=== PATIENT | male | born 1955 | race Caucasian/White ===

== ENCOUNTER 2025-04-30 09:02 | Outpatient (CLI) | payer MEDICARE, SELFPAY ==
[2025-04-30 17:53] LABS: Basophils # 0.1 K/mm3 (0-0.2); Basophils % 0.7 % (0.1-2.0); Eosinophils # 0.3 Kmm3 (0.0-0.4); Eosinophils % 4.1 % (0.1-12.0); Hematocrit 47.8 % (42.0-52.0); Hemoglobin 15.4 g/dL (14.1-18.0); Immature Granulocytes # 0.01 10^3uL; Immature Granulocytes % 0.1 %; Mean Corpuscular HGB Conc 32.2 g/dL (31.8-35.4); Mean Corpuscular Hemoglobin 30.5 pg (27.0-31.2); Mean Corpuscular Volume 94.7 fl (80-94); Monocytes # 0.5 K/mm3 (0.1-1.0); Monocytes % 6.4 % (1.7-9.3); Neutrophils # 5.4 K/mm3 (1.8-7.8); Neutrophils % 64.7 % (37.0-80.0); Nucleated Red Blood Cells # 0 10^3/uL; Nucleated Red Blood Cells % 0 %; Platelet Count 214 K/mm3 (142-424); Red Blood Count 5.05 M/mm3 (4.60-6.20); Red Cell Distribution Width 12.9 % (11.5-17.5); Red Cell Distribution Width-SD 44.5 fL; White Blood Count 8.3 K/mm3 (4.8-10.8)
[2025-04-30 18:26] LABS: Alanine Aminotransferase 18 U/L (12-78); Albumin Level 3.9 g/dl (3.5-5.0); Albumin/Globulin Ratio 1.6 (1.1-1.8); Alkaline Phosphatase 78 U/L (38-126); Anion Gap 11.1 mEq/L (5-15); Aspartate Amino Transferase 21 U/L (17-59); Bilirubin,Total 0.4 mg/dl (0.2-1.3); Blood Urea Nitrogen 16 mg/dl (9-20); Calcium 8.5 mg/dl (8.4-10.2); Carbon Dioxide 26 mmol/L (22.0-30.0); Chloride 104 mmol/L (98-107); Chol/HDL Ratio 4.8 (1-3.5); Cholesterol 115 mg/dl (140-200); Estimated Glomerular Filt Rate 133 ml/min (>60); GFR (African American) 161 ML/MIN (>60); Globulin 2.5 g/dL (1.3-3.2); Glucose 128 mg/dl (74-100); HDL Cholesterol 24 mg/dl (40-60); Potassium 4.1 mmoL/L (3.5-5.1); Sodium 137 mmol/L (136-145); Total Protein,Serum 6.4 g/dl (6.3-8.2); Triglycerides 159 mg/dl (30-150); VLDL Cholesterol 32 mg/dL (0-40)
[2025-04-30 18:39] LABS: Direct LDL Cholesterol 63.13 mg/dL (100-129)
[2025-04-30 18:59] LABS: Prostate Specific Ag Screen 1.1 ng/ml (0.0-4.0); Thyroid Stimulating Hormone 2.42 uIU/mL (0.465-4.68)
[2025-04-30 19:33] LABS: HIV Combo NEGATIVE (Negative)
[2025-04-30 19:42] LABS: Hepatitis C Ab Qual. W/ RFX NEGATIVE (Negative)
[2025-05-02 09:24] LABS: Hepatitis B Surface Antigen Negative (Negative)
--- OUTSIDE RECORDS SUMMARY | 2025-05-03 09:06 | XMS_ITS | Clinical Summary ---
Author Organization [facility] Address [address] [place] [address] Phone Care Team Providers Care Inletter Name Role Phone Unavailable Primary Care Provider Unavailabl e Allergies No known active allergies Medications metFORMIN (GLUCOPHAGE) 1,000 mg Take 1,000 mg by mouth 2 times daily. Active meclizine (ANTIVERT) 25 mg tablet Take by mouth as needed. Active insulin glargine (LANTUS) 100 unit/mL injectionIndica tions:diabetes mellitus Subcutaneous (Inject under the skin) 35 Units nightly. Indications: DIABETES MELLITUS Active atorvastatin (LIPITOR) 10 mg tablet Take 1 Tab by mouth nightly. 30 Tab 0 3 Active Aspirin 325 mg tablet Take 1 Tab by mouth daily (with breakfast). 30 Tab 0 3 Active clopidogrel (PLAVIX) 75 mg tablet Take 1 Tab by mouth daily. 30 Tab 0 3 Active Active Problems Problem Noted Date Diagnosed Date Syncope 08/05/2013 Diabetes mellitus 08/05/2013 Medical History Medical History Date Comments Diabetes mellitus (HCC) COPD (chronic obstructive pulmonary disease) (HC C) Heartburn Arthritis everywhere Family History Medical History Relation Name Comments Diabetes Mother High Blood Pressure Mother Kidney Disease Mother Learning Disabilities Mother Relation Name Status Comments Mother Social History Tobacco Use Types Packs/Day Years Used Date Smoking Tobacco: Every Day Cigarettes 1.5 46 Tobacco Cessation:Ready to Q uit: No; Counseling Given: Yes Alcohol Use Standard Drinks/Week Comments No 0 (1 standard drink = 0.6 oz pur e alcohol) Sex and Gender Information Value Date Recorded Sex Assigned at Not on file Legal Sex Male 9:02 AM EDT Gender Identity Not on file Sexual Orientation Not on file Obstetrics History Last Filed Vital Signs Vital Sign Reading Time Taken Comments Blood Pressure 122/68 08/07/2013 2:53 PM EDT Pulse 83 08/07/2013 2:53 PM EDT Temperature 36.3 C (97.4 F) 08/07/2013 11:00 AM EDT Respiratory Rate 18 08/07/2013 11:0 0 AM EDT Oxygen Saturation 96% 08/07/2013 2:53 PM EDT Inhaled Oxygen Concentration - - Weight 100.6 kg (221 lb 12.5 oz) 08/04/2013 6:49 PM EDT Height 175.3 cm (5' 9 ) 08/04/2013 6:49 PM EDT Body Mass Index 32.75 08/04/2013 6:49 PM EDT Plan of Treatment Health Maintenance Due Date Last Done Comments Wellness Exam Medicare 1956 Microalbuminuria 1963 Diabetic Eye Exam 1971 Hepatitis C Screening 1971 DTaP/TDaP/Td (1 - Tdap) 1972 Pneumococcal Vaccine 50+ (1 of 2 - PCV) 1972 Cologuard 1998 Colon Cancer Screening 1998 Colonoscopy 1998 FIT 1998 Sigmoidoscopy 1998 Virtual Colonography 1998 Low Dose Lung Cancer Screening 2003 Zoster (1 of 2) 2003 RSV or 60+ (1 - Ris k 60-74 years 1-dose series) 2013 Hemoglobin A1c 02/04/2014 08/07/2013, 08/06/2013, 08/05/2013 Lipids 07/24/2014 07/24/2013 COVID-19 Vaccine (1 - 2023-2 5 season) 2024 Influenza Vaccine (Season Ended) 2025 Hepatitis B Vaccine Aged Out No longe r eligible based on patient's age to complete this topic Meningococcal B Vaccine Aged Out No l onger eligible based on patient's age to complete this topic Procedures Procedure Name Priority Date/Time Associated Diagnosis Comments HEMOGLOBIN A1C Early AM 08/07/2013 5:30 AM EDT LIPID SCREEN ROCKY 07/24/2013 6:00 AM EDT from Last 3 Months or Most Recently Relevant to Health Maintenance Results * (ABNORMAL) HEMOGLOBIN A1C (08/07/2013 5:30 AM EDT) Hgb A1c 8.5(H) <=7.0 % [facility] Comment: Initial Diagnostic Criteria < 5.7 % Normal 5.7 - 6.4 % At risk for diabetes mellitus >= 6.5 % Consistent with diabetes mellitus Diabetes monitoring Target Value (ADA recommended): < 7 % Blood specimen (specimen) UPPER LIMB STRUCTURE / Unknown 08/07/2013 5:30 AM EDT 08/07/2013 5:53 AM EDT Tiffany Bustamante MD CHEMISTRY ORDERABLES Final Resul t Performing Organization Address [facility] de Phone Number [facility] [address] [place] [address] * (ABNORMAL) LIPID SCREEN (07/24/2013 6:00 AM EDT) Cholesterol 146 <=200 mg/dL [facility] Comment: < 200 Desirable 200 - 239 Borderline High >= 240 High Triglyceride 207(H) <=150 mg/dL [facility] Comment: < 150 Normal 150 - 199 Borderline High 200 - 499 High >= 500 Very High HDL 24(L) >=40 mg/dL [facility] Comment: > 60 Optimal 40 - 60 Acceptable < 40 Low LDL Calculated 81 <=100 mg/dL [facility] Comment: < 100 Optimal 100 - 129 Near or above optimal 130 - 159 Borderline High 160 - 189 High >= 190 Very High Blood specimen (specimen) UPPER LIMB STRUCTURE / Unknown 07/24/2013 6:00 AM EDT 07/24/2013 1:29 PM EDT Thien Jo MD CHEMISTRY ORDERABLES Edited Result - Final Performing Organization Address [facility] de Phone Number [facility] [address] [place] [address] from Last 3 Months or Most Recently Relevant to Health Maintenance Insurance [place] [address] [place] [address] [id number]
--- OUTSIDE RECORDS SUMMARY | 2025-05-03 09:07 | XMS_ITS | Data Portability ---
Author Organization [facility] Address [address] [place] [address] Assessment Encounter Date Assessment Date Assessment LastModified by Organization Details LastModified Time 03/30/2024 03/30/2024 Repeat A1c today remains above goal, is stable at 11 today, remains poorly controlled. Continue meds as prescribed for type 2 diabetes. reinforced importance of compliance with medications and ADA diet guidelines. reinforced target organ damage associated with uncontrolled type 2 diabetes. recommend BID blood glucose testing while keeping a log. Pt continuing to smoke and is aware of risks associated with use. Pt advised on smoking cessation and options available in assisting. Pt will reach out to me when ready to quit. F/u 3 months, sooner as needed. [email or web address] Not available 05/06/2024 11:35:13 Plan of Treatment Reminders Order Date Submit Date Provider Last Modified By Organization Details Last Modified Time Details Appointments None recorded. Lab HbA1c (hemoglobin A1c), blood 2024 025 [facility], [address] [place], [address], 5 14:21:34 lipid panel, serum 2023 024 [facility], [address], Esteban [address], [place], [address], 4 07:36:51 CBC w/ auto diff 2023 024 [facility], [address], [place] [address], [place], [address], 4 07:36:50 TSH + free T4, serum 2023 024 [facility], [address], [place] [address], [place], [address], 4 07:36:49 HbA1c (hemoglobin A1c), blood 2023 024 [facility], [address], [place] [address], [place], [address], 4 07:36:53 cobalamin and folate panel, serum 2023 024 [facility], [address], [place]eb[place] F, [place], [address], 4 07:36:52 CMP, serum or plasma 2023 024 [facility], [address], [place] [address], [place], [address], 4 07:36:51 HbA1c (hemoglobin A1c), blood 2023 024 [facility], [address], [place] [address], [place], [address], 4 07:39:08 CMP, serum or plasma 2023 024 [facility], [address], [place] F, [place], [address], 4 07:39:05 lipid panel, serum 2023 024 [facility], [address], [place]eb[place] F, [place], [address], 4 07:39:06 CBC w/ auto diff 2023 024 [facility], [address], [place] F, [place], [address], 4 07:39:04 vitamin B12 + folate, serum or blood 2023 024 [facility], [address], [place] F, [place], [address], 4 07:39:07 TSH + free T4, serum 2023 024 [facility], [address], [place] F, [place], [address], 4 07:39:03 vitamin D, 25-hydroxy, total, serum 2023 024 [facility], [address], [place] F, [place], [address], 4 07:39:09 glucose, fingerstick , blood 2023 024 [email or web address] [facility], [address] [place] [address] Rd[address] [place], [address], 4 17:13:48 HbA1c (hemoglobin A1c), blood [address], [address] [place] [address] Rd., [place], [address], 4 17:13:42 Referral None recorded. Procedures None recorded. Surgeries None recorded. Imaging None recorded. Medication Orders Blood Glucose Test strips 2023 024 [facility], [address] [place] [address] Road, [place], [address], 4 11:12:35 Anoro Ellipta 62.5 mcg-25 mcg/actuati on powder for inhalation 2023 024 [facility], [address] [place] [address] , [place], [address], 4 09:34:49 albuterol sulfate HFA 90 mcg/actuati on aerosol inhaler 2023 024 [facility] [facility], [address], [place], [address], 4 11:36:37 atorvastati n 10 mg tablet 2023 024 [facility] [place] [facility], [address], [place], [address], 4 11:36:38 clopidogrel 75 mg tablet 2023 024 [facility] [place] [facility], [address], [place], [address], 4 11:36:38 Januvia 100 mg tablet 2023 024 [facility] [place] [facility], [address] [place], [address], 4 17:13:45 Jardiance 25 mg tablet 2023 024 [facility] [facility], [address], [place], [address], 4 17:13:44 metformin 1,000 mg tablet 2023 024 [facility] [facility], [address] [place], [address], 4 17:13:44 Toujeo Max U-300 SoloStar 300 unit/mL (3 mL) subcutaneou s insulin pen 2023 024 [email or web address] 41 [facility], [address] [place], [address], 4 11:32:49 Humalog Mix 75-25 KwikPen U-100 insulin 100 unit/mL subcutaneou s pen 2023 024 [facility] [place] [facility], [address], [place], [address], 14:19:12 omeprazole 40 mg capsule,del ayed release 2023 024 [facility] [facility], [address], [place], [address], 11:36:39 losartan 100 mg tablet 2023 024 [facility] [facility], [address], [place], [address], 11:36:40 Patient TargetsNo targets recorded. Patient Instructions Encounter Date Encounter Id Patient Instructions Last Modified By Organization Details Last Modified Time 03/30/2024 [id number] advance directives: care instructions [email or web address] Not available 03/30/2024 17:13:42 smoking cessatio n counseling, greater than 3 minutes up to 10 minutes* [email or web address] Not available 05/06/2024 11:36:49 preventing falls : care instructions [email or web address] Not available 03/30/2024 17:13:42 05/11/2024 [id number] smoking cessatio n counseling, greater than 3 minutes up to 10 minutes* Not available 05/11/2024 10:44:31 body mass index: care instructions Not available 05/11/2024 11:25:38 learning about healthy weight Not available 05/11/2024 11:25:38 colon cancer screening: care instructions Not available 05/11/2024 11:25:38 Advised to take medication as directed Discussed continuous churn buttermaker effects of smoking To call office for questions, concerns or issues Not available 05/11/2024 13:24:28 07/13/2024 [id number] smoking cessatio n counseling, greater than 3 minutes up to 10 minutes* Not available 07/13/2024 09:05:48 body mass index: care instructions Not available 07/13/2024 14:00:04 learning about healthy weight Not available 07/13/2024 14:00:04 Advised to take medication as directed Will call with results of labs once available Encouraged to follow heart healthy lifestyle - low fat diet and aim for 30 minutes per day of physical exercise. To call office for questions, concerns or issues Not available 07/13/2024 18:08:35 11/16/2024 [id number] smoking cessatio n counseling, greater than 3 minutes up to 10 minutes* Not available 11/16/2024 10:43:15 body mass index: care instructions Not available 11/16/2024 12:06:04 learning about healthy weight Not available 11/16/2024 12:06:04 Advised to take medication as directed Will call with results of labs once available Encouraged to follow heart healthy lifestyle - low fat diet and aim for 30 minutes per day of physical exercise. To call office for questions, concerns or issues Not available 11/16/2024 13:07:25 02/23/2025 [id number] Reviewed results of in office testing today Advised to take medication as directed Encouraged to follow heart healthy lifestyle - low fat and aim for 30 minutes of physical activity per day To call office for questions, concerns or issues Not available 02/23/2025 15:11:02 Reason for Referral None Reported. Results Created Date Observation Date Name Description Value Unit Range Abnormal Flag Note LastModifiedBy Organization Detail LastModifiedTime 03/30/20 24 03/30/2024 HbA1c (hemo globi n A1c), blood HbA1C 11 % Not Available [facility] [address] [place], [address], 03/30/2024 17:10:58 03/30/20 24 03/30/2024 gluco se, finge rstic k, blood Blood Glucose: mg/dl 210 Not Available [facility] [address] [place], [address], 03/30/2024 17:10:58 07/13/20 24 07/14/2024 TSH+F REE T4 TSH 2.670 uIU/m L 0.450- 4.500 normal Not Available [facility] ([facility]) [address] [place], [address], 07/14/2024 07:39:03 07/13/20 24 07/14/2024 TSH+F REE T4 T4,free(dire ct) 1.27 NG/dL 0.82-1 .77 normal Not Available [facility] ([facility]) [address] [place], [address], 07/14/2024 07:39:03 07/13/20 24 07/14/2024 CBC WITH DIFFE RENTI AL/PL ATELE T WBC 6.0 x10e3 /uL 3.4-10 .8 normal Not Available [facility] ([facility]) [address] [place], [address], 07/14/2024 07:39:04 07/13/20 24 07/14/2024 CBC WITH DIFFE RENTI AL/PL ATELE T RBC 5.45 x10e6 /uL 4.14-5 .80 normal Not Available [facility] ([facility]) [address] [place], [address], 07/14/2024 07:39:04 07/13/20 24 07/14/2024 CBC WITH DIFFE RENTI AL/PL ATELE T hemoglobin 17.4 g/dL 13.0-1 7.7 normal Not Available [facility] ([facility]) [address] [place], [address], 07/14/2024 07:39:04 07/13/20 24 07/14/2024 CBC WITH DIFFE RENTI AL/PL ATELE T hematocrit 51.6 % 37.5-5 1.0 above high normal Not Available [facility] ([facility]) [address] [place], [address], 07/14/2024 07:39:04 07/13/20 24 07/14/2024 CBC WITH DIFFE RENTI AL/PL ATELE T MCV 95 fL 79-97 normal Not Available [facility] ([facility]) [address] [facility], [place], [address], 07/14/2024 07:39:04 07/13/20 24 07/14/2024 CBC WITH DIFFE RENTI AL/PL ATELE T MCH 31.9 pg 26.6-3 3.0 normal Not Available [facility] ([facility]) [address] [facility], [place], [address], 07/14/2024 07:39:04 07/13/20 24 07/14/2024 CBC WITH DIFFE RENTI AL/PL ATELE T MCHC 33.7 g/dL 31.5-3 5.7 normal Not Available [facility] ([facility]) [address] [place], [address], 07/14/2024 07:39:04 07/13/20 24 07/14/2024 CBC WITH DIFFE RENTI AL/PL ATELE T RDW 12.2 % 11.6-1 5.4 Not Available [facility] ([facility]) [address] [place], [address], 07/14/2024 07:39:04 07/13/20 24 07/14/2024 CBC WITH DIFFE RENTI AL/PL ATELE T platelets 214 x10e3 /uL 150-45 0 normal Not Available [facility] ([facility]) [address] [place], [address], 07/14/2024 07:39:04 07/13/20 24 07/14/2024 CBC WITH DIFFE RENTI AL/PL ATELE T neutrophils 65 % not estab. normal Not Available [facility] ([facility]) [address] [facility], [place], [address], 07/14/2024 07:39:04 07/13/20 24 07/14/2024 CBC WITH DIFFE RENTI AL/PL ATELE T lymphs 25 % not estab. normal Not Available [facility] ([facility]) [address] [place], [address], 07/14/2024 07:39:04 07/13/20 24 07/14/2024 CBC WITH DIFFE RENTI AL/PL ATELE T monocytes 6 % not estab. normal Not Available [facility] ([facility]) [address] [facility], [place], [address], 07/14/2024 07:39:04 07/13/20 24 07/14/2024 CBC WITH DIFFE RENTI AL/PL ATELE T eos 3 % not estab. normal Not Available [facility] ([facility]) [address] [facility], [place], [address], 07/14/2024 07:39:04 07/13/20 24 07/14/2024 CBC WITH DIFFE RENTI AL/PL ATELE T basos 1 % not estab. normal Not Available [facility] ([facility]) [address] [place], [address], 07/14/2024 07:39:04 07/13/20 24 07/14/2024 CBC WITH DIFFE RENTI AL/PL ATELE T immature cells JAVA SOFTWARE ENGINEER Not Available [facility] ([facility]) [address] [place], [address], 07/14/2024 07:39:04 07/13/20 24 07/14/2024 CBC WITH DIFFE RENTI AL/PL ATELE T neutrophils (absolute) 3.9 x10e3 /uL 1.4-7. 0 normal Not Available [facility] ([facility]) [address] [place], [address], 07/14/2024 07:39:04 07/13/20 24 07/14/2024 CBC WITH DIFFE RENTI AL/PL ATELE T lymphs (absolute) 1.5 x10e3 /uL 0.7-3. 1 normal Not Available [facility] ([facility]) [address] [facility], [place], [address], 07/14/2024 07:39:04 07/13/20 24 07/14/2024 CBC WITH DIFFE RENTI AL/PL ATELE T monocytes(ab solute) 0.4 x10e3 /uL 0.1-0. 9 normal Not Available [facility] ([facility]) [address] [facility], [place], [address], 07/14/2024 07:39:04 07/13/20 24 07/14/2024 CBC WITH DIFFE RENTI AL/PL ATELE T eos (absolute) 0.2 x10e3 /uL 0.0-0. 4 normal Not Available [facility] ([facility]) [address] [facility], [place], [address], 07/14/2024 07:39:04 07/13/20 24 07/14/2024 CBC WITH DIFFE RENTI AL/PL ATELE T baso (absolute) 0.1 x10e3 /uL 0.0-0. 2 normal Not Available [facility] ([facility]) [address] [facility], [place], [address], 07/14/2024 07:39:04 07/13/20 24 07/14/2024 CBC WITH DIFFE RENTI AL/PL ATELE T immature granulocytes 0 % not estab. Not Available [facility] ([facility]) [address] [facility], [place], [address], 07/14/2024 07:39:04 07/13/20 24 07/14/2024 CBC WITH DIFFE RENTI AL/PL ATELE T immature grans (abs) 0.0 x10e3 /uL 0.0-0. 1 Not Available [facility] ([facility]) [address] [facility], [place], [address], 07/14/2024 07:39:04 07/13/20 24 07/14/2024 CBC WITH DIFFE RENTI AL/PL ATELE T NRBC JAVA SOFTWARE ENGINEER Not Available [facility] ([facility]) [address] [facility], [place], [address], 07/14/2024 07:39:04 07/13/20 24 07/14/2024 CBC WITH DIFFE RENTI AL/PL ATELE T hematology comments: JAVA SOFTWARE ENGINEER Not Available [facility]) [address] [facility], [place], [address], 07/14/2024 07:39:04 07/13/20 24 07/14/2024 COMP. METAB OLIC PANEL (14) glucose 227 mg/dL 70-99 above high normal Not Available [facility] ([facility]) [address] [facility], [place], [address], 07/14/2024 07:39:05 07/13/20 24 07/14/2024 COMP. METAB OLIC PANEL (14) BUN 16 mg/dL 8-27 normal Not Available [facility] ([facility]) [address] [facility], [place], [address], 07/14/2024 07:39:05 07/13/20 24 07/14/2024 COMP. METAB OLIC PANEL (14) creatinine 0.84 mg/dL 0.76-1 .27 normal Not Available [facility] ([facility]) [address] [facility], [place], [address], 07/14/2024 07:39:05 07/13/20 24 07/14/2024 COMP. METAB OLIC PANEL (14) eGFR 94 mL/mi n/1.7 3 >59 normal Not Available [facility] ([facility]) [address] [place], [address], 07/14/2024 07:39:05 07/13/20 24 07/14/2024 COMP. METAB OLIC PANEL (14) BUN/creatini ne ratio 19 10-24 normal Not Available [facility]) [address] [place], [address], 07/14/2024 07:39:05 07/13/20 24 07/14/2024 COMP. METAB OLIC PANEL (14) sodium 139 mmol/ L 134-14 4 normal Not Available [facility] ([facility]) [address] [place], [address], 07/14/2024 07:39:05 07/13/20 24 07/14/2024 COMP. METAB OLIC PANEL (14) potassium 4.3 mmol/ L 3.5-5. 2 normal Not Available [facility] ([facility]) [address] [place], [address], 07/14/2024 07:39:05 07/13/20 24 07/14/2024 COMP. METAB OLIC PANEL (14) chloride 100 mmol/ L 96-106 normal Not Available [facility] ([facility]) [address] [place], [address], 07/14/2024 07:39:05 07/13/20 24 07/14/2024 COMP. METAB OLIC PANEL (14) carbon dioxide, total 23 mmol/ L 20-29 normal Not Available [facility] ([facility]) [address] [place], [address], 07/14/2024 07:39:05 07/13/20 24 07/14/2024 COMP. METAB OLIC PANEL (14) calcium 8.9 mg/dL 8.6-10 .2 normal Not Available [facility] ([facility]) [address] [place], [address], 07/14/2024 07:39:05 07/13/20 24 07/14/2024 COMP. METAB OLIC PANEL (14) protein, total 6.6 g/dL 6.0-8. 5 normal Not Available [facility] ([facility]) [address] [place], [address], 07/14/2024 07:39:05 07/13/20 24 07/14/2024 COMP. METAB OLIC PANEL (14) albumin 4.2 g/dL 3.9-4. 9 normal Not Available [facility] ([facility]) [address] [place], [address], 07/14/2024 07:39:05 07/13/20 24 07/14/2024 COMP. METAB OLIC PANEL (14) globulin, total 2.4 g/dL 1.5-4. 5 Not Available [facility] ([facility]) [address] [place], [address], 07/14/2024 07:39:05 07/13/20 24 07/14/2024 COMP. METAB OLIC PANEL (14) bilirubin, total 0.2 mg/dL 0.0-1. 2 normal Not Available [facility] ([facility]) [address] [place], [address], 07/14/2024 07:39:05 07/13/20 24 07/14/2024 COMP. METAB OLIC PANEL (14) alkaline phosphatase 86 IU/L 44-121 normal Not Available [facility] [address] [place], [address], 07/14/2024 07:39:05 07/13/20 24 07/14/2024 COMP. METAB OLIC PANEL (14) AST (SGOT) 14 IU/L 0-40 normal Not Available [facility] ([facility]) [address] [place], [address], 07/14/2024 07:39:05 07/13/20 24 07/14/2024 COMP. METAB OLIC PANEL (14) ALT (SGPT) 13 IU/L 0-44 normal Not Available [facility] ([facility]) [address] [place], [address], 07/14/2024 07:39:05 07/13/20 24 07/14/2024 LIPID PANEL cholesterol, total 132 mg/dL 100-19 9 normal Not Available [facility] ([facility]) [address] [place], [address], 07/14/2024 07:39:06 07/13/20 24 07/14/2024 LIPID PANEL triglyceride s 235 mg/dL 0-149 above high normal Not Available [facility] ([facility]) [address] [place], [address], 07/14/2024 07:39:06 07/13/20 24 07/14/2024 LIPID PANEL HDL cholesterol 26 mg/dL >39 below low normal Not Available [facility] ([facility]) [address] [place], [address], 07/14/2024 07:39:06 07/13/20 24 07/14/2024 LIPID PANEL VLDL cholesterol patricia 39 mg/dL 5-40 Not Available [facility]) [address] [place], [address], 07/14/2024 07:39:06 07/13/20 24 07/14/2024 LIPID PANEL LDL chol calc ([facility]) 67 mg/dL 0-99 Not Available [facility]) [address] [place], [address], 07/14/2024 07:39:06 07/13/20 24 07/14/2024 LIPID PANEL LDL calc comment: JAVA SOFTWARE ENGINEER Not Available [facility]) [address] [place], [address], 07/14/2024 07:39:06 07/13/20 24 07/14/2024 VITAM IN B12 AND FOLAT E vitamin B12 779 pg/mL 232-12 45 normal Not Available [facility] ([facility]) [address] [place], [address], 07/14/2024 07:39:07 07/13/20 24 07/14/2024 VITAM IN B12 AND FOLAT E folate (folic acid), serum 14.9 NG/mL >3.0 normal A serum folat e dominique ntrat ion of less than 3.1 ng/mL is consi dered to repre sent clini patricia defic iency . Not Available [facility] ([facility]) [address] [facility], [place], [address], 07/14/2024 07:39:07 07/13/20 24 07/14/2024 HEMOG LOBIN A1C hemoglobin A1C 10.1 % 4.8-5. 6 above high normal Predi abete s: 5.7 - 6.4 Diabe duke: >6.4 Glyce te contr ol for adult s with diabe duke: <7.0 Not Available [facility] ([facility]) [address] [facility], [place], [address], 07/14/2024 07:39:08 07/13/20 24 07/14/2024 VITAM IN D, 25-HY DROXY vitamin D, 25-hydroxy 25.9 NG/mL 30.0-1 00.0 below low normal Vitam in D defic iency has been defin ed by the Insti tute of Medic ine and an Endoc rine Socie ty pract ice guide line as a level of serum 25-OH vitam in D less than 20 ng/mL (1,2) . The Endoc rine Socie ty went on to furth er defin e vitam in D insuf ficie ncy as a level betwe en 21 and 29 ng/mL (2). 1. IOM (Inst itute of Medic ine). 2010. Dieta ry refer ence mack es for calci um and D. Lucila peraza [place]: The Natio nal [facility] Press . 2. Jacquelyn larsen MF, Immanuel reid [place], Malgorzata off-F errolga i MIN, et al. Evalu ation , treat ment, and preve ntion of vitam in D defic iency : an Endoc rine Socie ty clini patricia pract ice guide line. JCEM. 2010; 96(7) :1911 -30. Not Available [facility] ([facility]) [address] [facility], [place], [address], 07/14/2024 07:39:09 11/16/20 24 11/17/2024 TSH+F REE T4 TSH 3.000 uIU/m L 0.450- 4.500 normal Not Available [facility] ([facility]) [address] [facility], [place], [address], 11/17/2024 07:36:49 11/16/20 24 11/17/2024 TSH+F REE T4 T4,free(dire ct) 1.49 NG/dL 0.82-1 .77 normal Not Available [facility] ([facility]) [address] [facility], [place], [address], 11/17/2024 07:36:49 11/16/20 24 11/17/2024 CBC WITH DIFFE RENTI AL/PL ATELE T WBC 7.1 x10e3 /uL 3.4-10 .8 normal Not Available [facility] ([facility]) [address] [place], [address], 11/17/2024 07:36:50 11/16/20 24 11/17/2024 CBC WITH DIFFE RENTI AL/PL ATELE T RBC 5.20 x10e6 /uL 4.14-5 .80 normal Not Available [facility] ([facility]) [address] [place], [address], 11/17/2024 07:36:50 11/16/20 24 11/17/2024 CBC WITH DIFFE RENTI AL/PL ATELE T hemoglobin 16.7 g/dL 13.0-1 7.7 normal Not Available [facility] ([facility]) [address] [place], [address], 11/17/2024 07:36:50 11/16/20 24 11/17/2024 CBC WITH DIFFE RENTI AL/PL ATELE T hematocrit 48.8 % 37.5-5 1.0 normal Not Available [facility] ([facility]) [address] [place], [address], 11/17/2024 07:36:50 11/16/20 24 11/17/2024 CBC WITH DIFFE RENTI AL/PL ATELE T MCV 94 fL 79-97 normal Not Available [facility] ([facility]) [address] [place], [address], 11/17/2024 07:36:50 11/16/20 24 11/17/2024 CBC WITH DIFFE RENTI AL/PL ATELE T MCH 32.1 pg 26.6-3 3.0 normal Not Available [facility] ([facility]) [address] [place], [address], 11/17/2024 07:36:50 11/16/20 24 11/17/2024 CBC WITH DIFFE RENTI AL/PL ATELE T MCHC 34.2 g/dL 31.5-3 5.7 normal Not Available [facility] ([facility]) [address] [place], [address], 11/17/2024 07:36:50 11/16/20 24 11/17/2024 CBC WITH DIFFE RENTI AL/PL ATELE T RDW 12.3 % 11.6-1 5.4 Not Available [facility] ([facility]) [address] [place], [address], 11/17/2024 07:36:50 11/16/20 24 11/17/2024 CBC WITH DIFFE RENTI AL/PL ATELE T platelets 216 x10e3 /uL 150-45 0 normal Not Available [facility] ([facility]) [address] [place], [address], 11/17/2024 07:36:50 11/16/20 24 11/17/2024 CBC WITH DIFFE RENTI AL/PL ATELE T neutrophils 68 % not estab. normal Not Available [facility] ([facility]) [address] [facility], [place], [address], 11/17/2024 07:36:50 11/16/20 24 11/17/2024 CBC WITH DIFFE RENTI AL/PL ATELE T lymphs 21 % not estab. normal Not Available [facility] ([facility]) [address] [facility], [place], [address], 11/17/2024 07:36:50 11/16/20 24 11/17/2024 CBC WITH DIFFE RENTI AL/PL ATELE T monocytes 7 % not estab. normal Not Available [facility] ([facility]) [address] [facility], [place], [address], 11/17/2024 07:36:50 11/16/20 24 11/17/2024 CBC WITH DIFFE RENTI AL/PL ATELE T eos 3 % not estab. normal Not Available [facility] ([facility]) [address] [facility], [place], [address], 11/17/2024 07:36:50 11/16/20 24 11/17/2024 CBC WITH DIFFE RENTI AL/PL ATELE T basos 1 % not estab. normal Not Available [facility] ([facility]) [address] [place], [address], 11/17/2024 07:36:50 11/16/20 24 11/17/2024 CBC WITH DIFFE RENTI AL/PL ATELE T immature cells JAVA SOFTWARE ENGINEER Not Available [facility]) [address] [place], [address], 11/17/2024 07:36:50 11/16/20 24 11/17/2024 CBC WITH DIFFE RENTI AL/PL ATELE T neutrophils (absolute) 4.9 x10e3 /uL 1.4-7. 0 normal Not Available [facility] ([facility]) [address] [place], [address], 11/17/2024 07:36:50 11/16/20 24 11/17/2024 CBC WITH DIFFE RENTI AL/PL ATELE T lymphs (absolute) 1.5 x10e3 /uL 0.7-3. 1 normal Not Available [facility] ([facility]) [address] [facility], [place], [address], 11/17/2024 07:36:50 11/16/20 24 11/17/2024 CBC WITH DIFFE RENTI AL/PL ATELE T monocytes(ab solute) 0.5 x10e3 /uL 0.1-0. 9 normal Not Available [facility] ([facility]) [address] [facility], [place], [address], 11/17/2024 07:36:50 11/16/20 24 11/17/2024 CBC WITH DIFFE RENTI AL/PL ATELE T eos (absolute) 0.2 x10e3 /uL 0.0-0. 4 normal Not Available [facility] ([facility]) [address] [facility], [place], [address], 11/17/2024 07:36:50 11/16/20 24 11/17/2024 CBC WITH DIFFE RENTI AL/PL ATELE T baso (absolute) 0.1 x10e3 /uL 0.0-0. 2 normal Not Available [facility] ([facility]) [address], [place], [address], 11/17/2024 07:36:50 11/16/20 24 11/17/2024 CBC WITH DIFFE RENTI AL/PL ATELE T immature granulocytes 0 % not estab. Not Available [facility] ([facility]) [address], [place], [address], 11/17/2024 07:36:50 11/16/20 24 11/17/2024 CBC WITH DIFFE RENTI AL/PL ATELE T immature grans (abs) 0.0 x10e3 /uL 0.0-0. 1 Not Available [facility] ([facility]) [address] [place], [address], 11/17/2024 07:36:50 11/16/20 24 11/17/2024 CBC WITH DIFFE RENTI AL/PL ATELE T NRBC JAVA SOFTWARE ENGINEER Not Available [facility] ([facility]) [address], [place], [address], 11/17/2024 07:36:50 11/16/20 24 11/17/2024 CBC WITH DIFFE RENTI AL/PL ATELE T hematology comments: JAVA SOFTWARE ENGINEER Not Available [facility] ([facility]) [address] [place], [address], 11/17/2024 07:36:50 11/16/20 24 11/17/2024 COMP. METAB OLIC PANEL (14) glucose 216 mg/dL 70-99 above high normal Not Available [facility] ([facility]) [address] [place], [address], 11/17/2024 07:36:51 11/16/20 24 11/17/2024 COMP. METAB OLIC PANEL (14) BUN 20 mg/dL 8-27 normal Not Available [facility] ([facility]) [address] [place], [address], 11/17/2024 07:36:51 11/16/20 24 11/17/2024 COMP. METAB OLIC PANEL (14) creatinine 0.75 mg/dL 0.76-1 .27 below low normal Not Available [facility] ([facility]) [address] [place], [address], 11/17/2024 07:36:51 11/16/20 24 11/17/2024 COMP. METAB OLIC PANEL (14) eGFR 96 mL/mi n/1.7 3 >59 normal Not Available [facility] ([facility]) [address] [place], [address], 11/17/2024 07:36:51 11/16/20 24 11/17/2024 COMP. METAB OLIC PANEL (14) BUN/creatini ne ratio 27 10-24 above high normal Not Available [facility] ([facility]) [address] [place], [address], 11/17/2024 07:36:51 11/16/20 24 11/17/2024 COMP. METAB OLIC PANEL (14) sodium 138 mmol/ L 134-14 4 normal Not Available [facility] ([facility]) [address] [place], [address], 11/17/2024 07:36:51 11/16/20 24 11/17/2024 COMP. METAB OLIC PANEL (14) potassium 4.4 mmol/ L 3.5-5. 2 normal Not Available [facility] ([facility]) [address] [place], [address], 11/17/2024 07:36:51 11/16/20 24 11/17/2024 COMP. METAB OLIC PANEL (14) chloride 99 mmol/ L 96-106 normal Not Available [facility] ([facility]) [address] [place], [address], 11/17/2024 07:36:51 11/16/20 24 11/17/2024 COMP. METAB OLIC PANEL (14) carbon dioxide, total 22 mmol/ L 20-29 normal Not Available [facility] ([facility]) [address] [place], [address], 11/17/2024 07:36:51 11/16/20 24 11/17/2024 COMP. METAB OLIC PANEL (14) calcium 9.3 mg/dL 8.6-10 .2 normal Not Available [facility] ([facility]) [address] [place], [address], 11/17/2024 07:36:51 11/16/20 24 11/17/2024 COMP. METAB OLIC PANEL (14) protein, total 6.6 g/dL 6.0-8. 5 normal Not Available [facility] ([facility]) [address] [place], [address], 11/17/2024 07:36:51 11/16/20 24 11/17/2024 COMP. METAB OLIC PANEL (14) albumin 4.3 g/dL 3.8-4. 8 normal Not Available [facility] ([facility]) [address] [place], [address], 11/17/2024 07:36:51 11/16/20 24 11/17/2024 COMP. METAB OLIC PANEL (14) globulin, total 2.3 g/dL 1.5-4. 5 Not Available [facility] ([facility]) [address] [place], [address], 11/17/2024 07:36:51 11/16/20 24 11/17/2024 COMP. METAB OLIC PANEL (14) bilirubin, total 0.3 mg/dL 0.0-1. 2 normal Not Available [facility] ([facility]) [address] [place], [address], 11/17/2024 07:36:51 11/16/20 24 11/17/2024 COMP. METAB OLIC PANEL (14) alkaline phosphatase 90 IU/L 44-121 normal Not Available [facility] ([facility]) [address] [place], [address], 11/17/2024 07:36:51 11/16/20 24 11/17/2024 COMP. METAB OLIC PANEL (14) AST (SGOT) 14 IU/L 0-40 normal Not Available [facility] ([facility]) [address] [place], [address], 11/17/2024 07:36:51 11/16/20 24 11/17/2024 COMP. METAB OLIC PANEL (14) ALT (SGPT) 16 IU/L 0-44 normal Not Available [facility] ([facility]) [address] [place], [address], 11/17/2024 07:36:51 11/16/20 24 11/17/2024 LIPID PANEL cholesterol, total 132 mg/dL 100-19 9 normal Not Available [facility] ([facility]) [address], [place], [address], 11/17/2024 07:36:51 11/16/20 24 11/17/2024 LIPID PANEL triglyceride s 108 mg/dL 0-149 normal Not Available [facility] ([facility]) [address] [place], [address], 11/17/2024 07:36:51 11/16/20 24 11/17/2024 LIPID PANEL HDL cholesterol 29 mg/dL >39 below low normal Not Available [facility] ([facility]) [address], [place], [address], 11/17/2024 07:36:51 11/16/20 24 11/17/2024 LIPID PANEL VLDL cholesterol patricia 20 mg/dL 5-40 Not Available [facility] ([facility]) [address] [place], [address], 11/17/2024 07:36:51 11/16/20 24 11/17/2024 LIPID PANEL LDL chol calc ([facility]) 83 mg/dL 0-99 Not Available [facility] ([facility]) [address] [place], [address], 11/17/2024 07:36:51 11/16/20 24 11/17/2024 LIPID PANEL LDL calc comment: JAVA SOFTWARE ENGINEER Not Available [facility] ([facility]) [address] [place], [address], 11/17/2024 07:36:51 11/16/20 24 11/17/2024 VITAM IN B12 AND FOLAT E vitamin B12 961 pg/mL 232-12 45 normal Not Available [facility] ([facility]) [address], [place], [address], 11/17/2024 07:36:52 11/16/20 24 11/17/2024 VITAM IN B12 AND FOLAT E folate (folic acid), serum 9.7 NG/mL >3.0 normal A serum folat e dominique ntrat ion of less than 3.1 ng/mL is consi dered to repre sent clini patricia defic iency . Not Available [facility] ([facility]) [address], [place], [address], 11/17/2024 07:36:52 11/16/20 24 11/17/2024 HEMOG LOBIN A1C hemoglobin A1C 11.2 % 4.8-5. 6 above high normal Predi abete s: 5.7 - 6.4 Diabe duke: >6.4 Glyce te contr ol for adult s with diabe duke: <7.0 Not Available [facility] ([facility]) [address], [place], [address], 11/17/2024 07:36:53 02/26/20 25 02/25/2025 HbA1c (hemo globi n A1c), blood HbA1C 6.1 % Not Available [facility] [address] [place], [address], 02/23/2025 10:49:16 Result Notes None recorded. Problems Name Problem SNOMED Code Status Onset Date Resolution Date Notes Provider Name and Address Organization Details Recorded Time Renewal of prescript ion Completed 201610/16/2017 Eryn Caballero RN [address], [place], [address] , [place] - [facility] 7 10:08:07 Uncontrol led type 2 diabetes mellitus 785661199 Active 2016 Not Available [facility] 4 00:36:39 Eczema 43702147 Active 2016 Not Available [facility] 4 00:36:39 Family history of cancer of colon 653509776 Active 2016 Not Available [facility] 4 00:36:39 Neuropath y due to diabetes mellitus 257459170 Active 2016 Not Available [facility] 4 00:36:39 Tussive syncope 06690280 Completed 201612/16/2023 Shelia Rendon, [employer]CRE[employer] WORKER [address], [place], [address] , [place] - [facility] 4 10:37:06 Carotid artery stenosis 44339339 Active 2017 Not Available [facility] 4 00:36:40 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 42226369635 07 Active 2020 Not Available [facility] 4 00:36:39 Vitamin B12 deficienc y (non anemic) 22380908 Active 2020 Not Available [facility] 4 00:36:39 Secondary polycythe fabio 50541464 Active 2020 Not Available [facility] 4 00:36:39 Diabetes mellitus 95262717 Completed 201510/16/2017 Eryn hernandez, [place] - [facility] 7 09:27:02 Chronic obstructi ve pulmonary disease 36602259 Active 2015 Not Available [facility] 4 00:36:39 Late effects of cerebrova scular disease 572796448 Active 2015 Not Available [facility] 4 00:36:39 Pain of multiple joints 57766860 Active 2015 Not Available [facility] 4 00:36:39 Chronic back pain 158465519 Active 2015 Not Available [facility] 4 00:36:39 Asthma 398046456 Active 2015 Not Available [facility] 4 00:36:39 Essential hypertens ion 45639892 Active 2015 Not Available [facility] 4 00:36:39 Cigarette smoker 91656498 Completed 201512/11/2021 Shelia Rendon, [employer]CRE[employer] WORKER [address], [place], [address] , [place] - [facility] 2 21:48:21 Gastroeso phageal reflux disease without esophagit is 864591649 Active 2015 Not Available [facility] 4 00:36:39 Delay when starting to pass urine 8895859 Active 2015 Not Available [facility] 4 00:36:39 Mixed hyperlipi demia 372725915 Active 2015 Not Available [facility] 4 00:36:39 Hearing loss 56088075 Active 2015 Not Available [facility] 4 00:36:39 Very heavy cigarette smoker (40+ cigs/day) 319290383 Active 2021 Not Available [facility] 4 00:36:39 Vertebral artery obstructi on 91553423 Active 2015 Not Available [facility] 4 00:36:39 Ectasia of thoracic aorta 43595251916 9108 Active [address] lung [address] Not Available [facility] 4 00:36:39 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 Please review these documents and add these problems to the patient's chart manually as needed. Problem Notes None recorded. Procedures Surgical History Date Name Laterality Status Provider Name and Address Organization Details Recorded Time 4 A1C level 9.1 and above completed Ian Hwang RN [address], [place], [address], [place] - [facility] 04/03/2024 15:36:28 4 Advance Care Planning completed Daniele jackietimmy [place] - [facility] 12/06/2023 15:00:46 4 A1C level 9.1 and above completed Shelia Rendon APRN [address], [place], [address], [place] - [facility] 12/16/2023 10:22:39 4 Functional Status Assessed completed Daniele Narvaez [place] - [facility] 12/06/2023 15:00:46 3 A1C level 9.1 and above completed Shelia Rendon APRN [address], [place], [address], [place] [facility] 09/29/2023 23:51:53 3 A1C level 9.1 and above completed Shelia Rendon APRN [address], [place], [address], [place] [facility] 06/12/2023 10:23:23 3 A1C level 9.1 and above completed Shelia Rendon APRN [address], [place], [address], [place] [facility] 06/02/2023 23:07:47 2 A1C level 9.1 and above completed Shelia Rendon APRN [address], [place], [address], [place] [facility] 05/06/2022 19:41:04 0 Systolic B/P less than 130 mm Hg completed Mady Mahmood [place] - [facility] 07/12/2020 12:39:06 0 Diastolic B/P less than 80 mm Hg completed Mady Mahmood [place] - [facility] 07/12/2020 12:39:11 7 Advance Care Planning completed Carmen Bowles [place] - [facility] 04/08/2017 13:08:47 Hernia Repair completed Vianca Pal [place] - [facility] 10/23/2016 19:51:56 Imaging Results None recorded. Procedure Notes None recorded. Medical Equipment None Reported. Allergies Allergen ID Allergen Name Allergen Category Reaction Reaction Severity Criticality Documentation Date Start Date Code Code System Note Provider Name and Address Organization Details Recorded Time 278171 meclizine medicatio n confusion severe Not available 02/27/2021 6676 RxNorm Nadya Personenste in [facility] 1 12:56:17 05205 aspirin medicatio n Not available Not available Not available 08/31/20162007 1191 RxNorm Mady Mahmood [place], [place] - [facility] 0 12:33:26 Medications Name Sig Start Date Stop Date Status Note LastModified by Organization Details LastModified Time Prescript ion - New 02/04 completed [facility]- DIABETIC SUPPL[facility] Not Available Not Available Not Available accu-chek guide me w/device kit active Not Available Not Available Not Available losartan 50 mg tablet Take 1 tablet every day by oral route for 90 days. 08/16 completed Not Available Not Available Not Available cyclobenz aprine 10 mg tablet TAKE ONE (1) TABLET BY MOUTH EVERY DAY NEEDED 2024 active Not Available Not Available Not Avai lable amoxicill in 500 mg capsule TAKE ONE (1) CAPSULE (500 MG) BY MOUTH THREE (3) TIMES PER DAY 09/10 completed Not Available Not Available Not Available atorvasta tin 40 mg tablet take 1 tablet (40 mg) by oral route once daily at bedtime 08/16 completed atorvast atin 40 mg oral tablet;P rescribe Status: Prescrib ed on: 04/13/20 14 11:09AM; Disconti nued Status: Disconti nued on: 08/16/20 14 1:48PM;U ser: neuss;Es t. Completi on: 04/27/20 14;Pharm acyVerif ied: 04/13/20 14 11:09AM Not Available Not Available Not Available metformin 500 mg tablet take 1 tablet (500 mg) by oral route 2 times per day with morning and evening meals 10/13 completed metformi n 500 mg oral tablet;R ecorded Status: Recorded on: 10/23/20 11 11:00AM; Disconti nued Status: Disconti nued on: 10/13/20 13 11:52AM; User: mingo; EstLast Javier on: 04/20/20 12 Not Available Not Available Not Available doxycycli ne hyclate 100 mg capsule Take 1 capsule twice a day by oral route for 7 days. 12/12 completed Not Available Not Available Not Available ipratropi um 0.5 mg-albute rol 3 mg (2.5 mg base)/3 mL nebulizat ion soln INHALE THREE (3) ML FOUR (4) TIMES A DAY BY NEBULIZA TION ROUTE. 2022 active Not Available Not Available Not Avai lable Depo-Medr ol 40 mg/mL suspensio n for injection one time only 02/04 completed Not Available Not Available Not Available atorvasta tin 10 mg tablet TAKE ONE (1) TABLET BY MOUTH EVERY NIGHT AT BEDTIME active Not Available Not Available No t Available azithromy aylin 250 mg tablet TAKE TWO (2) TABLETS (500 MG) BY ORAL ROUTE ONCE DAILY FOR ONE (1) DAY THEN ONE (1) TABLET (250 MG) BY ORAL ROUTE ONCE DAILY FOR FOUR (4) DAYS 05/22 completed Not Available Not Available Not Available hydrocodo ne 5 mg-acetam inophen 325 mg tablet TAKE ONE (1) TABLET ORALLY EVERY 4-6 HOURS NEEDED FOR PAIN 09/29 completed Not Available Not Available Not Available Alcohol Pads 02/04 completed Not Available Not Available Not Available cyanocoba adeel (vit B-12) 1,000 mcg tablet TAKE ONE (1) TABLET BY MOUTH EVERY DAY active Not Available Not Available No t Available Accu-Chek Softclix Lancets USE DIRECTED TO CHECK BLOOD GLUCOSE THREE (3) TIMES DAILY 2024 active Not Available Not Available Not Avai lable penicilli n V potassium 500 mg tablet TAKE ONE (1) TABLET EVERY 8 HOURS BY ORAL ROUTE FOR 7 DAYS. 03/30 completed Not Available Not Available Not Available clopidogr el 75 mg tablet TAKE ONE (1) TABLET BY MOUTH EVERY DAY 2024 active Not Available Not Available Not Avai lable omeprazol e 40 mg capsule,d elayed release TAKE ONE (1) CAPSULE BY MOUTH EVERY DAY active Not Available Not Available No t Available aspirin 81 mg tablet,de layed release TAKE ONE (1) TABLET EVERY DAY BY ORAL ROUTE FOR 30 DAYS. 04/17 completed Not Available Not Available Not Available Zantac 150 mg tablet take 1 tablet (150 mg) by oral route 2 times per day 08/07 completed Zantac 150 mg oral tablet;P rescribe Status: Prescrib ed on: 02/09/20 15 5:05PM;U ser: neuss;Es t. Completi on: 08/07/20 15;Pharm acyVerif ied: 02/09/20 15 5:05PM Not Available Not Available Not Available terbinafi ne HCl 250 mg tablet TAKE ONE TABLET BY MOUTH EVERY DAY 12/08 completed Not Available Not Available Not Available Humalog U-100 Insulin 100 unit/mL subcutane ous solution 12 units q pm 05/20 completed Humalog 100 unit/mL subcutan eous solution ;Recorde d Status: Recorded on: 02/21/20 16 11:33AM; Disconti nued Status: Disconti nued on: 03/21/20 16 5:03PM;U ser: neuss;Es t. Completi on: 03/22/20 16;Indic ation: Type 2 Diabetes Mellitus - ( 00) Not Available Not Available Not Available Flagyl 500 mg tablet take 1 tablet by oral route 3 times a day for 10 days 03/21 completed Flagyl 500 mg oral tablet;R ecorded Status: Recorded on: 02/08/20 16 6:15PM;D iscontin ued Status: Disconti nued on: 03/21/20 16 2:38PM;U ser: neuss;Es t. Completi on: 02/18/20 16;Indic ation: Abdomina l pain, LLQ - (789.04) Not Available Not Available Not Available meclizine 25 mg tablet Take 2 tablets every 6 hours by oral route as needed. 07/12 completed Not Available Not Available Not Available metformin 1,000 mg tablet TAKE ONE (1) TABLET TWICE A DAY BY ORAL ROUTE WITH MEALS FOR 90 DAYS. 2024 active Not Available Not Available Not Avai lable Cipro 500 mg tablet take 1 tablet (500 mg) by oral route 2 times per day for 10 days 07/31 completed Cipro 500 mg oral tablet;R ecorded Status: Recorded on: 02/08/20 16 6:15PM;D iscontin ued Status: Disconti nued on: 07/31/20 16 9:58AM;U ser: neuss;Es t. Completi on: 02/18/20 16;Indic ation: Abdomina l pain, LLQ - (789.04) Not Available Not Available Not Available losartan 25 mg tablet TAKE 1 TABLET BY MOUTH DAILY. 03/18 completed Not Available Not Available Not Available nitroglyc isaias 0.4 mg sublingua l tablet 05/22 completed Not Available Not Available Not Available metoprolo l succinate ER 25 mg tablet,ex tended release 24 hr Take 1 tablet every day by oral route for 60 days. 05/30 completed Not Available Not Available Not Available Novolog U-100 Insulin aspart 100 unit/mL subcutane ous solution 10 units with bf and supper 10/16 completed Not Available Not Available Not Available Tylenol-C odeine #3 300 mg-30 mg tablet take 1 tablet by oral route 3 times a day as needed 11/09 completed Tylenol- Codeine #3 300-30 mg oral tablet;R ecorded Status: Recorded on: 12/07/19 12 6:03PM;D iscontin ued Status: Disconti nued on: 11/09/20 13 1:03PM;U ser: neuss;Es t. Completi on: 01/06/20 12;Indic ation: Pain - (68.7809 00) Not Available Not Available Not Available levofloxa aylin 500 mg tablet TAKE ONE (1) TABLET EVERY DAY BY ORAL ROUTE FOR 7 DAYS. 03/16 completed Not Available Not Available Not Available methylpre dnisolone 4 mg tablets in a dose pack TAKE DIRECTED FOR 6 DAYS 08/06 completed Not Available Not Available Not Available albuterol sulfate HFA 90 mcg/actua tion aerosol inhaler INHALE TWO (2) PUFFS EVERY FOUR (4) HOURS NEEDED 2024 active Not Available Not Available Not Avai lable cefdinir 300 mg capsule Take 1 capsule twice a day by oral route for 10 days. 07/12 completed Not Available Not Available Not Available losartan 100 mg tablet TAKE ONE (1) TABLET BY MOUTH EVERY DAY active Not Available Not Available No t Available loratadin e 10 mg tablet TAKE ONE (1) TABLET EVERY DAY BY ORAL ROUTE FOR 90 DAYS. 08/28 completed Not Available Not Available Not Available diazepam 5 mg tablet Take 0.5 tablets every 8 hours by oral route as needed. 07/12 completed Not Available Not Available Not Available Temovate 0.05 % topical cream apply to area on foot daily until symptoms improved 12/24 completed Not Available Not Available Not Available azithromy aylin 500 mg tablet Take 1 tablet every day by oral route for 3 days. 03/18 completed Not Available Not Available Not Available Novolog Mix 70-30 FlexPen U-100 Insulin 100 unit/mL subcutane ous pen 03/18 completed Not Available Not Available Not Available One Touch UltraSoft Lancets use tid 09/18 completed One Touch UltraSof t Lancets 250.02;R ecorded Status: Recorded on: 09/24/20 11 4:03PM;U ser: bishopk; Est. Completi on: 09/18/20 12;Indic ation: diabetes - (-5);Olivia nted: 03/07/20 12 Not Available Not Available Not Available Glucose Test test tid 08/20 completed glucose test 250.02;R ecorded Status: Recorded on: 09/24/20 11 4:01PM;D iscontin ued Status: Disconti nued on: 08/20/20 14 8:28PM;U ser: bishopk; Est. Completi on: 09/18/20 12;Print ed: 09/24/20 11 Not Available Not Available Not Available Albuterol Sulfate HFA 2 q 4 prn 07/25 completed albutero l mdi;Adama rded Status: Recorded on: 07/25/20 15 5:25PM;D iscontin ued Status: Disconti nued on: 07/25/20 15 7:39PM;U ser: neuss;In dication : - (-5) Not Available Not Available Not Available BD Ultra-Fin e Original Pen Needle 29 gauge x 1/2 use with lantus q hs 04/07 completed BD Insulin Pen Needle UF Orig 29 gauge x 1/2 miscella neous needle;R ecorded Status: Recorded on: 04/13/20 15 3:35PM;U ser: neuss;Es t. Completi on: 04/07/20 16 Not Available Not Available Not Available Januvia 100 mg tablet TAKE ONE (1) TABLET EVERY DAY BY ORAL ROUTE FOR 90 DAYS. 2024 active Not Available Not Available Not Avai lable Symbicort 160 mcg-4.5 mcg/actua tion HFA aerosol inhaler Inhale TWO puffs TWICE DAILY 01/10 completed Not Available Not Available Not Available Lantus Solostar U-100 Insulin 100 unit/mL (3 mL) subcutane ous pen 40units q pm 03/15 completed Lantus Solostar 100 unit/mL (3 mL) subcutan eous insulin pen;Adama rded Status: Recorded on: 02/08/20 16 3:44PM;D iscontin ued Status: Disconti nued on: 03/15/20 16 11:36AM; User: neuss;Izabella ayala. Completi on: 02/03/20 17 Not Available Not Available Not Available Humalog Mix 75-25 KwikPen U-100 insulin 100 unit/mL subcutane ous pen INJECT 8 UNITS SUBCUTAN EOUSLY WITH BREAKFAS T, THEN FOUR (4) UNITS WITH SUPPER 07/20 completed Not Available Not Available Not Available Humalog KwikPen (U-100) Insulin 100 unit/mL subcutane ous 10 units with breakfas t and supper 07/12 completed Not Available Not Available Not Available Pen Needle 31 gauge x 3/16 use as directed 12/16 completed Pen Needle 31 gauge x 3/16 miscella neous needle;P rescribe Status: Prescrib ed on: 12/21/19 14 11:52AM; User: neuss;Es dez Completdimas on: 12/16/19 15;Pharm Mary ied: 12/21/19 14 11:52AM Not Available Not Available Not Available Onglyza 5 mg tablet TAKE 1 TABLET BY MOUTH DAILY. 02/21 completed Not Available Not Available Not Available Embrace Blood Glucose System use as directed for 999 days 02/08 completed Embrace Blood Glucose System miscella neous misc;Rec orded Status: Recorded on: 08/20/20 14 8:25PM;D iscontin ued Status: Disconti nued on: 02/09/20 15 3:09PM;U ser: neuss;Es lucy. Completi on: 05/15/20 17;Print ed: 08/20/20 14 Not Available Not Available Not Available BD Ultra-Fin e Effie Pen Needle 32 gauge x 5/32 USE DIRECTED FOR INSULIN INJECTIO NS active Not Available Not Available No t Available Vascepa 1 gram capsule TAKE 2 CAPSULES BY MOUTH TWICE DAILY 08/28 completed Not Available Not Available Not Available Farxiga 10 mg tablet Take 1 tablet every day by oral route. 10/16 completed Not Available Not Available Not Available Anoro Ellipta 62.5 mcg-25 mcg/actua tion powder for inhalatio n INHALE ONE (1) PUFF EVERY DAY BY INHALATI ON ROUTE DIRECTED FOR 30 DAYS. active Not Available Not Available No t Available Embrace Blood Glucose test tid 02/08 completed [employer] [facility] Blood Glucose strips;R ecorded Status: Recorded on: 08/20/20 14 8:28PM;D iscontin ued Status: Disconti nued on: 02/09/20 15 3:09PM;U ser: neuss;Es dez Completi on: 08/15/20 15;Indic ation: diabetes - (-5);Olivia nted: 08/20/20 14 Not Available Not Available Not Available Jardiance 25 mg tablet TAKE ONE (1) TABLET BY MOUTH EVERY DAY active Not Available Not Available No t Available Leigha Ge U-300 Insulin 300 unit/mL (1.5 mL) subcutane ous pen INJECT 65 UNITS EVERY EVENING 08/23 completed Not Available Not Available Not Available Stiolto Respimat 2.5 mcg-2.5 mcg/actua tion solution for inhalatio n inhale 2 puffs by inhalati on route once daily at the same time each day 01/21 completed Stiolto Respimat 2.5-2.5 mcg/actu ation inhalati on mist;Pre scribe Status: Prescrib ed on: 07/25/20 15 7:43PM;U ser: neuss;Es t. Completi on: 01/21/20 16;Indic ation: Bronchos pasm Preventi on with COPD - ([id number]);Barak Yan fied: 07/25/20 15 7:43PM Not Available Not Available Not Available Accu-Chek Guide test strips TEST THREE (3) TIMES DAILY active Not Available Not Available No t Available OneTouch Ultra Blue Test Strip 08/06 completed Not Available Not Available Not Available Toujeo Max U-300 SoloStar 300 unit/mL (3 mL) subcutane ous insulin pen INJECT 80 UNITS SUBCUTAN EOUSLY EVERY DAY active Not Available Not Available No t Available Vitals Date Recorded Body height Body mass index (BMI) Body weight Body temperature Heart rate Oxygen saturation Oxygen saturation in Arterial blood by Pulse oximetry Respiratory rate Systolic blood pressure Diastolic blood pressure Provider Name and Address Organization Details Last Updated DateTime 5 175.26 cm 29.9 kg/m2 38682.7 1 g 98.3 [degF] 97 /min 95 % 95 % 20 /min 122 mm[Hg] 74 mm[Hg] Jocelin Wilson [place] - [facility] 5 10:25:12 Date Recorded Body height Body mass index (BMI) Body weight Body temperature Heart rate Oxygen saturation Oxygen saturation in Arterial blood by Pulse oximetry Respiratory rate Systolic blood pressure Diastolic blood pressure Provider Name and Address Organization Details Last Updated DateTime 4 175.26 cm 27.8 kg/m2 75814.4 7 g 98.4 [degF] 76 /min 92 % 92 % 18 /min 120 mm[Hg] 80 mm[Hg] Carmen Duran [place] - [facility] 4 16:40:39 Date Recorded Body height Body mass index (BMI) Body weight Respiratory rate Heart rate Oxygen saturation Oxygen saturation in Arterial blood by Pulse oximetry Systolic blood pressure Diastolic blood pressure Provider Name and Address Organization Details Last Updated DateTime 4 175.26 cm 28.1 kg/m2 53382.5 5 g 18 /min 98 /min 92 % 92 % 122 mm[Hg] 80 mm[Hg] Crystal [place] - [facility] 4 10:42:37 Date Recorded Body height Body mass index (BMI) Body weight Heart rate Oxygen saturation Oxygen saturation in Arterial blood by Pulse oximetry Respiratory rate Systolic blood pressure Diastolic blood pressure Provider Name and Address Organization Details Last Updated DateTime 4 175.26 cm 28.2 kg/m2 96406.1 4 g 90 /min 90 % 90 % 18 /min 112 mm[Hg] 70 mm[Hg] Crystal Anne [place] - [facility] 4 09:12:55 Date Recorded Body height Body mass index (BMI) Body weight Heart rate Oxygen saturation Oxygen saturation in Arterial blood by Pulse oximetry Respiratory rate Systolic blood pressure Diastolic blood pressure Provider Name and Address Organization Details Last Updated DateTime 4 175.26 cm 28.1 kg/m2 92913.5 5 g 98 /min 94 % 94 % 18 /min 126 mm[Hg] 80 mm[Hg] Crystal Anne [employer] - [facility] 4 10:42:20 Social History Question Answer Notes LastModified by Organizat ion Details LastModified Time Tobacco Smoking Status Current Every Day Smoker Vianca hernandez, [place] [facility] 10/23/2016 19:51:06 Do You Have An Advance Directive? No Information not available 07/12/2020 Are You Blind Or Do You Have Difficulty Seeing? No Information not available 07/12/2020 What Is Your Level Of Caffeine Consumption? Heavy Information not available 07/12/2020 How Much Tobacco Do You Chew? None Information not available 07/12/2020 Are You Deaf Or Do You Have Serious Difficulty Hearing? Yes Left Ear Information not available 07/12/2020 Which Illicit Or Recreational Drugs Have You Used? Never [email or web address] Information not available 10/23/2016 Hard Of Hearing Or Deaf In One Or Both Ears? Yes Information not available 10/23/2016 Legally Blind In One Or Both Eyes? No [email or web address] Information not available 10/23/2016 Live Alone Or With Others? With Others [email or web address] Information not available 10/23/2016 What Was The Date Of Your Most Recent Tobacco Screening? 02/23/2025 Information not available 02/23/2025 How Many Children Do You Have? 0 Information not available 07/12/2020 What Is Your Current Pack Years? [email or web address] Information not available 08/28/2022 What Is Your Relationship Status? Domestic Partner Information not available 07/12/2020 Seat Belts Used Routinely Yes Information not available 07/12/2020 Smoke Alarm In Home Yes [email or web address] Information not available 10/23/2016 At What Age Did You Start Smoking Tobacco? 12 [email or web address] Information not available 08/28/2022 How Much Tobacco Do You Smoke? 3+ PPD [email or web address] Information not available 02/27/2021 Has Tobacco Cessation Counseling Been Provided? Yes Information not available 05/15/2022 On What Date Was Tobacco Cessation Counseling Provided? 02/23/2025 Information not available 02/23/2025 How Many Years Have You Smoked Tobacco? 56 [email or web address] Information not available 12/16/2023 Do You Have Difficulty Walking Or Climbing Stairs? No Information not available 07/12/2020 Sex: Male Functional Status Question Answer Note LastModified by Organizat ion Details LastModified Time Do you use any illicit or recreational drugs? No Information not available 12/12/2022 Do you or have you ever used any other forms of tobacco or nicotine? No Information not available 05/15/2022 What is your level of alcohol consumption? None Information not available 07/12/2020 Do you or have you ever used smokeless tobacco? Never used smokeless tobacco Information not available 07/12/2020 Are you currently employed? No [email or web address] Information not available 10/23/2016 Are you able to walk? YESWOREST Information not available 07/12/2020 Do you have difficulty doing errands alone? No Information not available 07/12/2020 Are you able to care for yourself? Yes [email or web address] Information not available 10/23/2016 What is your occupation? disabled Information not available 10/23/2016 Do you have difficulty dressing or bathing? No Information not available 07/12/2020 Do you or have you ever used e-cigarettes or vape? Never used electronic cigarettes Information not available 07/12/2020 What is your exercise level? Occasional [email or web address] Information not available 10/23/2016 Mental Status Question Answer Note LastModified by Organization D etails LastModified Time Do you have difficulty concentrating, remembering or making decisions? No Information no t available 07/12/2020 Family History Relationship Description Onset Age of this Age Resolved Age Notes LastModified by Organization Details LastModified Time Father Alzheimer's disease [email or web address] Not available 2015 19:52:47 Mother Arthritis [email or web address] Not availab le 10/23/2016 19:53:02 Mother Cataract [email or web address] Not availabl e 10/23/2016 19:53:11 Mother Hypertensive disorder [email or web address] Not available 2015 19:53:44 Mother Diabetes mellitus [email or web address] Not available 2015 19:54:24 Brother Hypertensive disorder [email or web address] Not available 2015 19:53:44 Brother Chronic renal failure dialys is [email or web address] Not available 10/23/2016 19:54:12 Sister Hypertensive disorder [email or web address] Not available 2015 19:53:44 Medical History No medical history recorded. Immunizations Vaccine Type Date Status Note Provider Name and Address Organization Details Recorded Time Influenza, high-dose, quadrivalent, PF 020 cancelled patient objection Litzy Singh MD [address], [place], [address], [place] - [facility] 08/16/2020 11:38:06 pneumococcal polysaccharide PPV23 020 completed Nadya Saenz [facility], [place] - [facility] 08/16/2020 11:57:57 Tdap 022 cancelled patient objection Shelia Rendon APRN [address], [place], [address], [place] [facility] 11/13/2022 23:20:34 Influenza, split virus, quadrivalent, preservative 017 cancelled patient objection Not Available [facility] 12/12/2019 03:54:47 zoster recombinant 023 cancelled patient objection Shelia Taylorall, [employer] SCREEN WORKER [address], [place], [address], [place] - [facility] 06/02/2023 23:06:37 zoster recombinant 023 cancelled patient objection Shelia Justice, [employer] SCRE[employer] WORKER [address], [place], [address], [place] [facility] 07/14/2023 21:32:11 Influenza, split virus, quadrivalent, preservative 018 cancelled patient objection Not Available [facility] 12/12/2019 03:54:55 pneumococcal polysaccharide PPV23 024 cancelled patient objection Shelia Justice, [employer] SCRE[employer] WORKER [address], [place], [address], [place] [facility] 12/16/2023 10:42:18 Influenza, high-dose, quadrivalent, PF 024 cancelled patient objection Shelia Justice, [employer] SCRE[employer] WORKER [address], [place], [address], [place] [facility] 12/16/2023 10:42:18 Pneumococcal conjugate PCV20, polysaccharide CTF860 conjugate, adjuvant, PF 024 cancelled patient objection Jocelin Jacob, [employer] SCRE[employer] WORKER [address], [place], [address], [place] [facility] 05/11/2024 13:22:50 pneumococcal polysaccharide PPV23 024 cancelled patient objection Jocelin Jacob, [employer] SCRE[employer] WORKER [address], [place], [address], [place] [facility] 05/11/2024 13:22:50 Pneumococcal conjugate PCV 13 024 cancelled patient objection Jocelin Jacob, [employer] SCRE[employer] WORKER [address], [place], [address], [place] [facility] 05/11/2024 13:22:50 zoster recombinant 024 cancelled patient objection Jocelin Jacob, [employer]CRE[employer] WORKER [address], [place], [address], [place] [facility] 05/11/2024 13:22:50 Tdap 024 cancelled patient objection Jocelin Cecil, HEAD SCREEN WORKER [address], [place], [address], [place] [facility] 05/11/2024 13:22:50 SARS-COV-2 (COVID-19) vaccine, UNSPECIFIED 021 completed Not Available [facility] 12/31/2023 00:36:40 COVID-19, mRNA, LNP-S, PF, 100 mcg/0.5mL dose or 50 mcg/0.25mL dose 021 completed Not Available [facility] 12/31/2023 00:36:40 COVID-19, mRNA, LNP-S, PF, 100 mcg/0.5mL dose or 50 mcg/0.25mL dose 022 completed Not Available [facility] 12/31/2023 00:36:40 COVID-19, mRNA, LNP-S, bivalent, PF, 50 mcg/0.5 mL or 25mcg/0.25 mL dose 022 completed Not Available [facility] 12/31/2023 00:36:40 COVID-19, mRNA, LNP-S, PF, 100 mcg/0.5mL dose or 50 mcg/0.25mL dose 021 completed Not Available [facility] 12/31/2023 00:36:40 COVID-19, mRNA, LNP-S, PF, 100 mcg/0.5mL dose or 50 mcg/0.25mL dose 021 completed Not Available [facility] 12/31/2023 00:36:40 Past Encounters Encounter ID Performer Location Encounter Start Date Encounter Closed Date Diagnosis/Indication Diagnosis SNOMED-CT Code Diagnosis ICD10 Code Diagnosis Note [id number] Cristian Gomes MD [facility] [address] [place] 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 [address] 04/08/2017 12:47:31 04/08/2017 13:56:09 General examination of patient 946282348 Z00.00 Body mass index 25-29 - overweight 675894857 Z68.29 Nicotine dependence 5629 4008 F17.200 Diabetes mellitus 631160 09 E11.9 Chronic ob structive pulmonary disease 42773061 J44.9 Hearing loss 38398528 H9 1.92 Gastroesop hageal reflux disease without esophagitis 066880272 K21.9 Mixed hyperlipidemia 267 189787 E78.2 Pain of mu ltiple joints 04818002 M25.50 Essential hypertension 50964405 I10 Cigarette smoker 5084896 7 F17.623 [id number] Cristian Gomes MD [facility] [address] [facility] [place] [address] 10/16/2017 08:55:11 10/16/2017 10:31:31 Hyperlipidemia 81718656 E78.2 Viral screening 40166962 4 Z11.59 Uncontroll ed type 2 diabetes mellitus 345421039 E11.65 Essential hypertension 51440093 I10 Chronic back pain 590722 002 G89.29 Administra tion of influenza vaccine 78604636 Z23 Chronic ob structive pulmonary disease 98724273 J44.9 Hearing loss 97004744 H9 1.92 Cigarette smoker 2615490 7 F17.210 Screening for malignant neoplasm of prostate 345223683 Z12.5 Eczema 76774307 L30.9 Vertebral artery obstruction 23678176 I65.09 right vertebral artery occlusion noted mra Screening for malignant neoplasm of colon 676976836 Z12.11 Delay when starting to pass urine 4274166 R39.11 Tobacco user 388841398 Z 72.0 Late effec ts of cerebrovascular disease 989287307 I69.90 Gastroesop hageal reflux disease without esophagitis 748907238 K21.9 Pain of mu ltiple joints 89008806 M25.50 [id number] Cristian Gomes MD [facility] [address] [place], [place] [address] [place] [address] 11/20/2017 09:24:42 11/20/2017 11:04:47 Uncontrolled type 2 diabetes mellitus 836129969 E11.65 Essential hypertension 96673797 I10 Neuropathy due to diabetes mellitus 738845786 E11.40 Tussive syncope 57067249 R05 Hyperlipidemia 36328947 E78.2 Chronic ob structive pulmonary disease 43173182 J44.9 [id number] Cristian Gomes MD [address] [place] [address] 12/24/2017 09:14:28 12/24/2017 11:15:43 Neuropathy due to diabetes mellitus 850323107 E11.40 Uncontroll ed type 2 diabetes mellitus 164491687 E11.65 Administra tion of influenza vaccine 28899653 Z23 Body mass index 25-29 - overweight 884546458 Z68.25 Cough 27083455 R05 Chronic ob structive pulmonary disease 10403835 J44.9 Cigarette smoker 8091540 7 F17.210 Essential hypertension 98014212 I10 Vertebral artery obstruction 68595506 I65.09 right vertebral artery occlusion noted mra Hyperlipidemia 47854286 E78.2 [id number] Cristian Gomes MD [address] [place] [address] 02/04/2018 12:49:29 02/04/2018 13:59:46 Family history of cancer of colon 804725780 Z80.0 Uncontroll ed type 2 diabetes mellitus 845562191 E11.65 Essential hypertension 55213730 I10 Chronic ob structive pulmonary disease 58939066 J44.9 Upper resp iratory infection 41730968 J06.9 [id number] Cristian Gomes MD [address] [place] [address] 03/18/2018 12:47:43 03/18/2018 14:24:48 Uncontrolled type 2 diabetes mellitus 429803991 E11.65 Chronic back pain 003780 002 G89.29 Essential hypertension 62505192 I10 Mixed hyperlipidemia 267 009651 E78.2 Hyperlipidemia 43393226 E78.2 Vertebral artery obstruction 05345634 I65.09 right vertebral artery occlusion noted mra Screening for malignant neoplasm of colon 207458786 Z12.11 [id number] Cristian Gomes MD [facility] [address] [facility] [place] [address] 04/29/2018 14:16:22 04/29/2018 16:22:59 Uncontrolled type 2 diabetes mellitus 653552429 E11.65 Cigarette smoker 1351141 7 F17.210 Dizziness 683570495 R42 History of cerebrovascular accident 723109815 Z86.73 also recurrent headaches Headache 29579650 R51 recurrent Carotid ar emmy stenosis 69871723 I65.29 Chronic ob structive pulmonary disease 26257381 J44.9 Body mass index 30+ - obesity 045446560 Z68.39 [id number] Litzy Singh MD [address] [place] [address] 07/12/2020 12:02:22 07/12/2020 14:33:35 Uncontrolled type 2 diabetes mellitus 135792991 E11.65 Essential hypertension 04679464 I10 Vertebral artery obstruction 38581227 I65.09 Chronic ob structive pulmonary disease 73448850 J44.9 Spasm of back muscles 20 1929869 M62.830 Mixed hyperlipidemia 267 154258 E78.2 Eczema 14308959 L30.9 Body mass index 30+ - obesity 505237887 Z68.33 [id number] Litzy Singh MD [address] [place] [address] 08/16/2020 10:12:41 08/16/2020 11:50:00 Uncontrolled type 2 diabetes mellitus 897873737 E11.65 Essential hypertension 86371488 I10 Mixed hyperlipidemia 267 480715 E78.2 Gastroesop hageal reflux disease without esophagitis 522139332 K21.9 Administra tion of influenza vaccine 00622994 Z23 Screening for malignant neoplasm of colon 622510358 Z12.11 Administra tion of pneumococcal vaccine 70456558 Z23 Nicotine d ependence with current use 805644325 F17.200 Diabetic p eripheral neuropathy 327609765 E11.40 Chronic ob structive pulmonary disease 24858316 J44.9 Vertebral artery obstruction 77396514 I65.09 [id number] Litzy Singh MD [address] [place] [address] 10/12/2020 09:24:59 10/12/2020 11:53:28 Chronic obstructive pulmonary disease 26956386 J44.9 Spasm 47252821 R25.2 [id number] Litzy Singh MD [address] [place] [address] 11/29/2020 16:55:09 11/29/2020 17:57:27 Chronic obstructive pulmonary disease 52502446 J44.9 Uncontroll ed type 2 diabetes mellitus 611915690 E11.65 Gastroesop hageal reflux disease without esophagitis 771622565 K21.9 Mixed hyperlipidemia 267 539234 E78.2 Essential hypertension 81035964 I10 [id number] Litzy Singh MD [address] [place] [address] 02/27/2021 12:34:58 02/27/2021 13:43:54 Colonoscopy declined 1378320522 01561 Z53.20 Uncontroll ed type 2 diabetes mellitus 240831128 E11.65 Nicotine d ependence with current use 763434866 F17.200 Onychomyco sis of toenails 415268651 B35.1 Peripheral neuropathy due to type 2 diabetes mellitus 5668523333 107 E11.42 Chronic ob structive pulmonary disease 40395240 J44.9 [id number] Litzy Singh MD [address] [place] [address] 05/30/2021 12:00:43 05/30/2021 17:08:49 Uncontrolled type 2 diabetes mellitus 645302512 E11.65 Vitamin B1 2 deficiency (non anemic) 70585030 E53.8 Mixed hyperlipidemia 267 959307 E78.2 Hypertensive disorder 38 540134 I10 Secondary polycythemia 56919882 D75.1 [id number] Litzy Singh MD [address] [place] [address] 08/23/2021 09:50:44 08/23/2021 11:26:43 Uncontrolled type 2 diabetes mellitus 885761447 E11.65 Essential hypertension 39100029 I10 Mixed hyperlipidemia 267 066621 E78.2 Vertebral artery obstruction 31143835 I65.09 Disorder o f vitamin B12 685684253 E53.8 [id number] Shelia Rendon[address] [place] [address] 12/08/2021 14:43:53 12/08/2021 16:22:26 Chronic obstructive pulmonary disease 77176971 J44.9 Uncontroll ed type 2 diabetes mellitus 944494965 E11.65 Essential hypertension 67973424 I10 Mixed hyperlipidemia 267 753700 E78.2 Secondary polycythemia 47011423 D75.1 Acute bact erial bronchitis 205786841 J20.9 Very heavy cigarette smoker (40+ cigs/day) 180732989 Z72.0 Vertebral artery obstruction 15312387 I65.09 Disorder o f vitamin B12 033359847 E53.8 Chronic back pain 620605 002 G89.29 [id number] Shelia Rendon[address] [place] [address] 01/23/2022 10:06:37 01/23/2022 12:54:15 Suspected COVID-19 850202944 Z20.822 Pneumonia 185102441 J18. 9 Chronic ob structive pulmonary disease 60048577 J44.9 [id number] Shelia Rendon[address] [place] [address] 03/16/2022 12:30:34 03/16/2022 14:10:59 Uncontrolled type 2 diabetes mellitus 932920291 E11.65 Chronic back pain 333445 002 G89.29 Body mass index 30+ - obesity 557500050 Z68.31 Late effec ts of cerebrovascular disease 347215783 I69.90 Vitamin B1 2 deficiency (non anemic) 11130693 E53.8 Chronic ob structive pulmonary disease 43150401 J44.9 [id number] Saadia Ward[address] [place] [address] 05/15/2022 13:45:45 05/15/2022 14:27:24 Acute exacerbation of chronic obstructive pulmonary disease 248164131 J44.1 Nasal congestion 9432441 0 R09.81 [id number] Sheliaisaias Rendon[address] [place] [address] 08/28/2022 13:21:02 08/28/2022 15:16:17 Screening for malignant neoplasm of colon 757879605 Z12.11 Obesity 374900476 E66.3 Uncontroll ed type 2 diabetes mellitus 673653970 E11.65 Administra tion of diphtheria, pertussis, and tetanus vaccine 763597876 Z23 Body mass index 25-29 - overweight 315232630 Z68.29 Falling injury 164974214 W19.XXXA Very heavy cigarette smoker (40+ cigs/day) 763329569 Z72.0 [id number] Shelia Rendon[address] [place] [address] 11/05/2022 12:52:53 11/05/2022 15:01:37 Chronic obstructive pulmonary disease 44354058 J44.9 Respirator y tract congestion and cough 040239357 R05.3 Acute bact erial sinusitis 17365004 J01.90 Oxygen sat uration below reference range 653554111 R79.81 Very heavy cigarette smoker (40+ cigs/day) 589526775 Z72.0 [id number] Shelia Rendon[address] [place] [address] 12/12/2022 15:28:56 12/12/2022 17:34:12 Peripheral neuropathy due to type 2 diabetes mellitus 1389706275 107 E11.42 Mixed hyperlipidemia 267 565656 E78.2 Uncontroll ed type 2 diabetes mellitus 216562112 E11.65 Essential hypertension 62045948 I10 Body mass index 30+ - obesity 341849922 Z68.31 Obesity 967332744 E66.9 Vitamin B1 2 deficiency (non anemic) 39047535 E53.8 Acute sinusitis 36620092 J01.90 Very heavy cigarette smoker (40+ cigs/day) 681781546 Z72.0 [id number] Shelia Rendon [facility] [address] [facility] [place] [address] 04/24/2023 14:01:22 04/24/2023 17:12:19 Chronic obstructive pulmonary disease 14109296 J44.9 Pain of mu ltiple joints 99356738 M25.50 Uncontroll ed type 2 diabetes mellitus 353510777 E11.65 Essential hypertension 17601604 I10 Chronic back pain 197020 002 G89.29 Screening for malignant neoplasm of colon 667889571 Z12.11 Vaccination needed 09611 57318 68135 Z23 Gastroesop hageal reflux disease without esophagitis 425382995 K21.9 Very heavy cigarette smoker (40+ cigs/day) 226375748 Z72.0 Tachycardia 0036861 R00. 0 [id number] [place] [address] [place] [address] 05/10/2023 10:21:23 05/10/2023 11:17:12 Very heavy cigarette smoker (40+ cigs/day) 124732835 Z72.0 Current every day smoker, 2 PPD. Does not desire to quit at this time. Acute bronchitis 4402046 2 J20.9 Body mass index 30+ - obesity 755767986 Z68.30 Obesity 296239385 E66.9 [id number] [place] [address] [place] [address] 06/12/2023 09:34:47 06/12/2023 10:59:29 Uncontrolled type 2 diabetes mellitus 796297629 E11.65 Screening for malignant neoplasm of colon 734983188 Z12.11 Vaccine de clined by patient 6925119108 02 Z28.21 Chronic ob structive pulmonary disease 61941646 J44.9 Very heavy cigarette smoker (40+ cigs/day) 082939474 Z72.0 [id number] Shelia Rendon [facility] [address] [place] [address] 09/11/2023 14:46:43 09/11/2023 17:48:53 Uncontrolled type 2 diabetes mellitus 035278442 E11.65 Essential hypertension 65497545 I10 Mixed hyperlipidemia 267 054370 E78.2 Chronic ob structive pulmonary disease 87350579 J44.9 Very heavy cigarette smoker (40+ cigs/day) 846873309 Z72.0 [id number] Shelia Rendon [address] [place] [address] 12/16/2023 09:12:10 12/16/2023 11:15:09 Adult health examination 638616966 Z00.00 Depression screening 171 617522 Z13.31 Examinatio n of blood pressure 603398668 Z01.30 Diet education 81244779 Z71.3 Counseling 487767669 Z71 .82 Exercise counseling . Patient encouraged to exercise 30 minutes 5 days a week. [facility] for falls 960112144 Z91.81 STEADI FAST screening score of ___0__. 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 Advance care planning 71 9290176 Z71.89 Uncontroll ed type 2 diabetes mellitus 484202656 E11.65 Chronic ob structive pulmonary disease 70003188 J44.9 Hyperlipidemia 68662554 E78.5 Essential hypertension 59473553 I10 Gastroesop hageal reflux disease without esophagitis 886319914 K21.9 [id number] Jocelin Jacob [address] [place] [address] 05/11/2024 10:19:34 05/11/2024 11:12:34 Uncontrolled type 2 diabetes mellitus [id number] E11.65 Essential hypertension 93580034 I10 Nicotine dependence 5629 4008 F17.200 Screening for malignant neoplasm of colon 894956732 Z12.11 Pneumococc al vaccination declined 726062390 Z28.21 Vaccination needed 94715 39836 24023 Z23 Body mass index 25-29 - overweight 258029029 Z68.28 Overweight 523562504 E66 .3 [id number] Jocelindrake Jacob [address] [place] [address] 07/13/2024 08:55:17 07/13/2024 10:24:57 Mixed hyperlipidemia 791050940 E78.2 Uncontroll ed type 2 diabetes mellitus 949026700 E11.65 Essential hypertension 73185968 I10 Nicotine dependence 5629 4008 F17.200 Body mass index 25-29 - overweight 077111398 Z68.28 Overweight 745341574 E66 .3 Chronic ob structive pulmonary disease 50665438 J44.9 [id number] Jocelin Jacob [address] [place] [address] 11/16/2024 10:18:42 11/16/2024 12:14:26 Chronic back pain 835071279 G89.29 Peripheral neuropathy due to type 2 diabetes mellitus 0917460577 107 E11.42 Neuropathy due to diabetes mellitus 157457679 E11.40 Gastroesop hageal reflux disease without esophagitis 281983866 K21.9 Mixed hyperlipidemia 267 861739 E78.2 Uncontroll ed type 2 diabetes mellitus 859896607 E11.65 Essential hypertension 42501667 I10 Vitamin B1 2 deficiency (non anemic) 65144794 E53.8 Nicotine dependence 5629 4008 F17.200 Vaccination declined 950 6331283 Z28.21 Seasonal flu vaccine offered and declined Body mass index 25-29 - overweight 810445904 Z68.28 Overweight 162985853 E66 .3 [id number] Jocelin Jacob APRN [facility] [address] [place] [address] 02/23/2025 10:09:56 02/23/2025 11:46:08 Chronic obstructive pulmonary disease 78389349 J44.9 Type 2 mikayla betes mellitus 30541085 E11.21 Health Concerns Section Related Observation LastModified by Organization Detai ls LastModified Time None Recorded Concern Status LastModified by Organization Details LastModified Time None Recorded Advance Directives Directive N: Payers Insurance Date Sequence Insurance Name Policy Number Policy Chery Covered Member ID Chery Member ID Guarantor Name 05/11/2024 1 [facility] - DUAL ELIGIBLE (MEDICARE REPLACEMENT/A DVANTAGE - HMO) BERNARD Polk [id number] Chapin Polk 05/11/2024 2 [facility] - FFS/TRADITION AL Chapin Polk [id number] Chapin Polk 05/11/2024 1 [place] Chapin Polk [id number] Chapin Polk 05/11/2024 [employer] - MEDICARE [facility] (MEDICARE) Chapin Polk [id number] Chapin Polk 05/11/2024 2 [facility] - FFS/TRADITION [place] Chapin Polk [id number] Chapin Polk 04/09/2025 [facility] - DUAL ELIGIBLE (MEDICARE REPLACEMENT/A DVANTAGE - HMO) BERNARD Polk [id number] Chapin Polk 05/11/2024 1 [employer] (MEDICARE REPLACEMENT/A DVANTAGE - HMO) Chapin Polk [id number] Chapin Polk 05/11/2024 1 [employer] (MEDICARE REPLACEMENT/A DVANTAGE - HMO) Chapin Pollitt [id number] Chapin Pollitt 04/19/2022 1 *SELF PAY* Do uglas Pollitt 02/23/2025 1 [facility] BERNARD Samson E Pollitt [id number] Chapin Pollitt 04/19/2022 1 *SELF PAY* Do uglas Pollitt 05/11/2024 1 [facility] DANI[facility] Chapin E Pollitt [id number] Chapin Pollitt 05/11/2024 [employer] [place] [facility] (MEDICARE) Chapin E Pollitt [id number] Chapin Pollitt 05/11/2024 1 [place]MED[place]AC[place]/A DVANTAGE - HMO) [id number] Chapin C Pollitt [id number] Chapin Pollitt Notes Date Note Type Note Provider Name and Address Organization Details Recorded Time 03/30/2024 text/html here for diabeti c check and copd f/ureports compliance with meds as prescribed, tolerates wellinfrequently checks blood sugar and denies s/s hypoglycemia, diabetes consistently poorly controlledcontinues to be a heavy cigarette smoker, smokes 3 ppd for 50 years, reports using inhalers/nebs as prescribed but continues to have daily sob that worsens with activity-denies cp, n/v/d, recent febrile illness, depression, SI. Shelia Rendon, [employer] SCRE[employer] WORK[employer] [address], [place], [address], [facility] - [facility] 05/06/2024 11:37:09 05/11/2024 text/html Presents for fol low up HTN, HLD, DM Feeling wellNo chest pain, shortness of breath, dizziness, lightheadedness, syncope, palpitations or edema.No fever, chills or cough.Smoking 4-5 ppd - rolling own cigarettesDenies alcohol and illicit drug usageCompliant with medications Jocelin Jacob, [employer] SCRE[employer] WORKER [address], [place], [address], [facility] - [facility] 05/11/2024 13:24:35 07/13/2024 text/html Presents for fol low up regarding asthma, COPD, HTN, HLDFeeling wellLast night while walking in house felt 'pop' sensation to right knee. Did not fall. Was painful last night, aggravated with ambulation. Did improved with heat therapy. Knee is better today - minimal painNo swellingNo chest pain, shortness of breath, dizziness, lightheadedness, syncope, palpitations or edema.No fever, chills or cough.Smoking 1.5 ppdDenies alcohol and illicit drug usage.Compliant with medications Jocelin Jacob APRN [address], [place], [address], [facility] - [facility] 07/13/2024 18:08:44 11/16/2024 text/html Presents for fol low up regarding COPD, HTN, GERD, HLD , neuropathy , DMFeeling wellDoes endorse arthritic pain to kneesNo chest pain, shortness of breath, dizziness, lightheadedness, syncope, palpitations or edema. No fever, chills or cough.Smoking 4 ppdDenies alcohol and illicit drug usageCompliant with medications Jocelin Jacob APRN [address], [place], [address], [facility] 11/16/2024 13:07:31 02/23/2025 text/html [facility], he is fasting. Presents for follow up regarding DM, HTN, HLDFeeling wellNo chest pain, shortness of breath, dizziness, lightheadedness, syncope, palpitations or edema. No fever, chills or cough.Smoking 2.5 ppdDenies alcohol and illicit drug usageCompliant with medications Jocelin Jacob APRN [address], [place], [address], [facility] 02/23/2025 15:11:10
== END 2025-04-30 23:59 | disposition home or self-care (01) ==
LOC: LAB.DROPOF 05-03 09:02
PROVIDERS: PCP Family Medicine; Visit Provider Family Medicine
DX: Z11.59 Encounter for screening for other viral diseases (principal); E11.9 Type 2 diabetes mellitus without complications; E78.5 Hyperlipidemia, unspecified
CPT/HCPCS: 80053; 80061; 83036; 84443; 85025; 86803; 87340; 87389; G0103